=== PATIENT | male | born 1980 | race African-American/Black ===

== ENCOUNTER 2018-10-02 09:19 | Emergency (ER) | payer SELFPAY ==
[~2018-10-02] VITALS: Ht 170.2 cm; Wt 70.0 kg
[2018-10-02 09:29] VITALS: BP 138/86
== END 2018-10-02 10:00 | disposition left against medical advice (07) ==
LOC: ER 09:19
DX: Z53.21 Procedure and treatment not carried out due to patient leaving prior to being seen by health care provider (principal)